=== PATIENT | female | born 1990 | race Two or more races ===

== ENCOUNTER → 2020-09-02 | Day surgery (SDC) | payer BC ==
[2020-09-02] VITALS (13 sets, daily range): BP systolic 103–124; BP diastolic 49–79
[~2020-09-02] VITALS: Ht 157.5 cm; Wt 79.0 kg
[~2020-09-02] MED LIST: ACETAMINOPHEN325 M1 ORAL; Acetaminophen (Non formulary) 100 ML IV ONE; Atropine Sulfate 0.4mg/ml inj IVP PRN; D5 1/2NS 1,000 ML IV SCH; DiphenhydrAMINE 50mg/ml Inj IVP PRN; HYDROcodone/Acetamin 5/325 tab ORAL PRN; HYDROcodone/Acetamin 7.5/325 tab ORAL PRN; HYDROmorphone 1mg/ml Carpuject SUBQ PRN; Hydromorphone 0.5mg/0.5ml inj IVP PRN; Ketorolac 30mg Inj IV PRN; LORazepam Inj 2mg/ml 1ml IV PRN; LR 1000ml 1,000 ML IVLG SCH; LR 1000ml ONE; Labetalol 5mg/ml 20ml vial IV PRN; Lidocaine 1% MPF 10mg/ml 5ml ONE; Lidocaine 1% Plain 30 ml INJ ONE; MULTIVITAMINS1 EAC2 ORAL; Meperidine 25mg/1ml Inj (FOR RIGORS ONLY) IV PRN; Metoclopramide 10mg/2ml Inj IVP PRN; Midazolam 2mg/2ml Inj IVP PRN; NS Irrig 3000ml IRRIG ONE; ProvayBlue 5mg/ml 10ml amp INJ ONE; Ropivacaine 5mg/ml Vial 30ml INJ ONE; Sterile Water Irrig 1000ml IRRIG ONE; Tylenol #3 tab (300mg/30mg) ORAL PRN; ceFAZolin sod 1 GM in NS 55 ML IVPB ONE; fentaNYL 100 mcg/2 mL IV ONE; fentaNYL 100 mcg/2 mL IV PRN; oxyCODONE HCL/Acetaminophen 5/325mg ORAL PRN
--- NOTE | 2020-09-02 09:50 | Anethesia Preoperative Eval ---
Anesthesia Pre-op PMH/ROS General Date of Evaluation: Sep 02, 2020 Time of Evaluation: 07:49 Anesthesiologist: Lcuia ASA Score: ASA 2 Mallampati Score Class I : Soft palate, uvula, fauces, pillars visible Class II: Soft palate, uvula, fauces visible Class III: Soft palate, base of uvula visible Class IV: Only hard plate visible Mallampati Classification: Class II Surgeon: Susan Diagnosis: Abd Pain Surgical Procedure: Laproscopy, L Ovarian Cystectomy Anesthesia History: none Family History: no anesthesia problems Allergies: Coded Allergies: No Known Allergies (Unverified , 09/01/20) Medications: see eMAR Patient NPO?: Yes Past Medical History Cardiovascular: Reports: other - HL Gastrointestinal/Genitourinary: Reports: GERD, other - Polycystic Ovary Synrome Other: obesity - BMI 33 PSxH Narrative: Dermoid Cyst 2013 Anesthesia Pre-op Phys. Exam Physician Exam Last Vital Signs Date Time Temp Pulse Resp B/P (MAP) Pulse Ox O2 Delivery O2 Flow Rate FiO2 09/02/20 08:48 98.6 18 18 103/59 99 Room Air Constitutional: NAD Neurologic: CN 2-12 intact Cardiovascular: RRR Respiratory: CTA Gastrointestinal: S/NT/ND Airway Exam Mallampati Score: Class II MO: full ROM: full Teeth: missing, intact Anesthesia Pre-op A/P Labs Urine Test Test 09/02/20 08:01 Urine HCG, Qualitative Negative (NEGATIVE) Risk Assessment & Plan Assessment: ASA 2 Plan: GA, SED, GlideScope Status Change Before Surgery: No Pre-Antibiotics Dru Gram Ancef IV Given Within 1 Hr of Incision: Yes Time Given: 10:16 Feliciano Myers MD Sep 02, 2020 09:50
--- NOTE | 2020-09-02 09:51 | Immediate Post-Op Evaluation ---
Immediate Post-Op Evalulation Immediate Post-Op Evalulation Procedure: Laproscopy, L Ovarian Cystectomy Date of Evaluation: Sep 02, 2020 Time of Evaluation: 13:30 IV Fluids: 1000 LR Blood Products: 0 Estimated Blood Loss: 75 Urinary Output: 350 Blood Pressure Systolic: 122 Blood Pressure Diastolic: 89 Pulse Rate: 101 Respiratory Rate: 16 O2 Sat by Pulse Oximetry: 100 Temperature (Fahrenheit): 98.8 Pain Score (1-10): 2 Nausea: No Vomiting: No Complications 0 Patient Status: awake, reacts, patent, extubated, none Hydration Status: adequate Dru Gram Ancef IV Given Within 1 Hr of Incision: Yes Time Given: 10:16 Feliciano Myers MD Sep 02, 2020 09:51
--- NOTE | 2020-09-02 09:52 | 48 Hour Post Anesthesia Eval ---
Post Anesthesia Evaluation Procedure: Laproscopy, L Ovarian Cystectomy Date of Evaluation: Sep 02, 2020 Time of Evaluation: 15:45 Blood Pressure Systolic: 127 0: 82 Pulse Rate: 81 Respiratory Rate: 18 Temperature (Fahrenheit): 98.6 O2 Sat by Pulse Oximetry: 100 Airway: patent Nausea: No Vomiting: No Pain Intensity: 2 Hydration Status: adequate Cardiopulmonary Status: Stable Mental Status/LOC: patient returned to baseline Follow-up Care/Observations: 0 Post-Anesthesia Complications: 0 Follow-up care needed: N/A Feliciano Myers MD Sep 02, 2020 09:52
--- NOTE | 2020-09-02 10:15 | Pre-Procedure Note/Attestation ---
Pre-Procedure Note/Attestation Complete Prior to Procedure Planned Procedure: right Procedure Narrative: Video laparoscopy, ovarian cystectomy, possible salpingo-oophorectomy Indications for Procedure Pre-Operative Diagnosis: Very Large Ovarian Cyst Attestation I attest that I discussed the nature of the procedure; its benefits; risks and complications; and alternatives (and the risks and benefits of such alternatives), prior to the procedure, with the patient (or the patient's legal pharmaceutical specialty representative). I attest that, if there was a reasonable possibility of needing a blood transfusion, the patient (or the patient's legal pharmaceutical specialty representative) was given the [facility] standardized written summary, pursuant to the Johnnie Myriam Blood Safety Act ([place] Health and Safety Code # 1645, as amended). I attest that I re-evaluated the patient just prior to the surgery and that there has been no change in the patient's H&P, except as documented below: Shaq Davis MD Sep 02, 2020 10:15
--- NOTE | 2020-09-02 13:19 | Brief Operative Note ---
Immediate Post Operative Note Operative Note Pre-op Diagnosis: Very Large Ovarian Cyst Procedure: LEFT Salpingo-oophorectomy, vaporization of endometriosis - multiple lesions, pelvic washings, Hysteroscopy with endometrial curettage Post-op Diagnosis: Left dermoid cyst, extensive necrotic area of the ovary Post-op Diagnosis: same as pre-op plus Surgeon: Shaq Davis MD Winder Operator: Shabana West MD Anesthesiologist: MD Lucia Anesthesia: general Specimen: yes Complications: none Condition: stable - Left Ovary, Pelvic Washings, Fluids: LR @125 cc/hr Estimated Blood Loss: volume - 100 ml Drains: none Implant(s) used?: No Shaq Davis MD Sep 02, 2020 13:18
--- NOTE | 2020-09-02 20:59 | Operative Note - Dictated ---
DATE OF OPERATION: 09/02/2020 PREOPERATIVE DIAGNOSES: 1. Large ovarian cyst, likely on the left. 2. Pelvic endometriosis and thickened endometrium on ultrasound. POSTOPERATIVE DIAGNOSIS: Left dermoid cyst with extensive necrotic component. PROCEDURE PERFORMED: Video hysteroscopy with endometrial curettage with video pelviscopy, left salpingo-oophorectomy, pelvic washings, and vaporization of multiple lesions of endometriosis. SURGEON: Shaq Davis MD GIFT SHOP MANAGER: Shabana West MD ANESTHESIA: General. ANESTHESIOLOGIST: Feliciano Myers MD. DESCRIPTION OF PROCEDURE: After all the appropriate consents were signed, the patient was brought to the operating room, placed on the table in supine position. General anesthesia was induced without complication. The patient was then placed in the dorsal lithotomy position. Perineum, vagina, and abdomen were prepped and draped in usual fashion for the procedure. The patient was examined under anesthesia. There appeared to be extensive fullness in the lower abdomen. At this time, the cervix was visualized, grasped and dilated and video hysteroscope was introduced. There appeared to be large amount of endometrial tissue; however, no discrete endometrial polyps could be visualized. At this time, endometrial curettage was performed and submitted to pathology for evaluation. Uterine manipulator was placed and the procedure continued at its abdominal portion. Umbilical incision was made. Veress needle was introduced and pelvis was entered with a 10 mm trocar after the pelvis was insufflated with 15 mmHg. The pelvic cavity was visualized and two additional trocars in the right and left lower quadrants were placed. These were 5 millimeter trocars. At this time, a very large pelvic mass was visualized. It appeared to be highly irregular in its appearance. There did not appear appeared to be a general area of dermoid. At this time, pelvic irrigation was undertaken and pelvic washings were collected. These were submitted separately to pathology. At this time, the mass was grasped at the area away from the tube, which was actually spread across the mass. The mass was entered and a significant amount of fluid was released. The fluid was suctioned and the procedure then continued to attempt to show out the area of dermoid. However, all of the areas that were touched were highly vascularized and significant bleeding was noted. At this time, the dermoid itself and the elements of the dermoid cyst could not be visualized. Only, fluid could be identified. At this time due to its irregular nature, pathology was called to the room and area of the capsule was given to the pathologist. The frozen section was performed and the result of the frozen section came back mature areas of teratoma; however, it was also correlated with extensive areas of necrosis around the teratoma. This was the same picture as the physical appearance of this mass. At this time due to the likelihood of this being either borderline or malignant and difficulty to shell out the rest of the capsule, it was decided to proceed with removing of the mass and therefore the entire left ovary and tube were elevated and infundibulopelvic ligament was coagulated and transected. Dissection continued until the utero-ovarian ligament was reached. The utero-ovarian was also coagulated and transected. The full cyst was extremely large and was placed in the posterior cul-de-sac. The endoscopic pouch was placed in the abdomen and the cyst was with great difficulty placed into the pouch. The pouch was fairly big enough to encompass the entire mass. A 5 millimeter trocar was placed in a small puncture and 10 mm was used to extract the ovary in the back. After additional dissection, the ovary was removed from the umbilical port and in the back. The pelvis was now extensively irrigated and all the debris was suctioned of blood and blood clots were suctioned. There did not appear to be any of the usual elements of dermoid cyst such as fat and hair, so the irrigation was undertaken to simply remove the blood debris and blood clots. At this time, the incisions were closed with 0 Vicryl suture at the fascial layer and 4-0 suture at the skin layer. The skin incisions were closed with Steri-Strips and benzoin. The patient was placed in the supine position and awakened from general anesthesia. She tolerated the procedure very well. Shaq Davis M.D. DR: Vasiliy JOB#: [id number] CC:
== END | disposition home or self-care (01) ==
LOC: SUR 07:54
DX: N83.202 Unspecified ovarian cyst, left side (principal); N80.8 Other endometriosis; D39.8 Neoplasm of uncertain behavior of other specified female genital organs; E66.9 Obesity, unspecified; K21.9 Gastro-esophageal reflux disease without esophagitis; E78.5 Hyperlipidemia, unspecified; Z68.31 Body mass index [BMI] 31.0-31.9, adult
CPT/HCPCS: 49322; 58558; 58661; 81025; 88104; 94003; J0131; J0690; J1100; J1885; J2001; J2250; J2405; J2704; J2765; J2795; J3010; J7120; 94150